=== PATIENT | female | born 1945 | race Two or more races ===

== ENCOUNTER 2021-11-15 21:07 | Inpatient (IN) | payer MEDICARE, OTHER ==
[~2021-11-15] VITALS: Ht 154.9 cm; Wt 113.4 kg
--- NOTE | 2021-11-15 21:25 | NUR ---
BASILIO Beltran FROM [facility] FOR C.O WEAKNESS X 1 DAY. PATIENT ALERT AND ORIENTED X3. BED RIDDEN IN BED 02 ON MONITOR AND POX. PT AWAITING MD CASTREJON.
--- NOTE | 2021-11-15 22:41 | NUR ---
COVID ANTIGEN SWAB DONE AND SENT TO LAB
--- NOTE | 2021-11-15 22:41 | NUR ---
BLOOD COLLECTED AND SENT TO LAB
--- NOTE | 2021-11-15 22:42 | NUR ---
BS 244 NOTIFIED
--- NOTE | 2021-11-15 22:50 | NUR ---
INFLUENZA SWAB AND URINE COLLECTED AND SENT TO LAB
[2021-11-15 23:02] LABS: BASOPHILS # (AUTO) 0.1 K/uL (0.0-0.2); BASOPHILS % (AUTO) 0.4 % (0.0-2.0); EOSINOPHILS % (AUTO) 0.3 % (0.0-6.0); HEMATOCRIT 37 % (33-45); HEMOGLOBIN 11.7 g/dL (11.5-14.8); LYMPHOCYTES # (AUTO) 1.8 K/uL (0.8-4.8); LYMPHOCYTES % (AUTO) 10.8 % (20.0-44.0); MEAN CORPUSCULAR HGB CONC 31 g/dl (31.0-36.0); MEAN CORPUSCULAR VOLUME 95 fL (82-100); MONOCYTES # (AUTO) 1.4 K/uL (0.1-1.30); MONOCYTES % (AUTO) 8.7 % (2.0-12.0); NEUTROPHILS # (AUTO) 13.2 K/uL (1.8-8.9); NEUTROPHILS % (AUTO) 79.8 % (43.0-81.0); PLATELET COUNT (AUTO) 183 K/uL (150-450); RED BLOOD CELL COUNT(AUTO) 3.92 MIL/uL (4.0-5.2); WHITE BLOOD COUNT (AUTO) 16.5 K/uL (4.3-11.0)
[2021-11-16 00:11] LABS: CALCIUM, SERUM 7.8 mg/dL (8.5-10.1); CARBON DIOXIDE 32 mmol/L (21-32); CHLORIDE 105 mmol/L (98-107); GLUCOSE 286 mg/dL (74-106); POTASSIUM 4.9 mmol/L (3.5-5.1); SODIUM SERUM 138 mmol/L (136-145); UREA NITROGEN, BLOOD 22 mg/dL (7-18)
[2021-11-16 00:15] LABS: BILIRUBIN,URINE NEGATIVE (NEGATIVE); COLOR,URINE YELLOW (YELLOW); LEUKOCYTE ESTERASE ,URINE LARGE (NEGATIVE); NITRITE, URINE NEGATIVE (NEGATIVE); PROTEIN,URINE NEGATIVE (NEGATIVE); UGLUCOSE 250 MG/DL mg/dL (NEGATIVE); UROBILINOGEN,URINE 0.2 EU/dL (0.2)
--- NOTE | 2021-11-16 00:16 | NUR ---
REGISTERED VASCULAR TECHNOLOGIST (RVT) AT PT'S BEDSIDE
[2021-11-16 00:25] LABS: ALANINE AMINOTRANSFERASE 55 U/L (12-78); ALBUMIN 2.5 g/dL (3.4-5.0); ALKALINE PHOSPHATASE 79 U/L (46-116); ASPARTATE AMINOTRANSFERASE 30 U/L (15-37); BILIRUBIN,DIRECT 0.1 mg/dL (0.0-0.2); BILIRUBIN,TOTAL 0.3 mg/dL (0.2-1.0); TOTAL PROTEIN, SERUM 5.1 g/dL (6.4-8.2)
[2021-11-16 00:32] LABS: BACTERIA,URINE Many /HPF (None Seen); RBC,URINE 0-2 /HPF (0-2); WBC,URINE TOO NUMEROUS TO COUN /HPF (0-3)
[2021-11-16 00:41] LABS: SQUAMOUS EPITHELIAL CELL,UR 0-2 /HPF (None Seen)
[2021-11-16] MEDS ORDERED: CEFTRIAXONE 1 G in IV D5W 50 ML IV ONE (02:00)
[2021-11-16] MEDS ORDERED: CEFTRIAXONE 1GM BAG (ER ONLY) 50 ML IV ONE (02:03)
--- NOTE | 2021-11-16 02:28 | NUR ---
SPOKE TO THE PT'S DAUGHTER, JULIA, AND INFORMED HER ABOUT PATIENT GETTING ADMITTED
[2021-11-16] MEDS ORDERED: ONDANSETRON HCL/PF 4 MG/2 ML VIAL IVP PRN (02:30)
[2021-11-16] MEDS ORDERED: Z GUARD REMEDY 4 OZ OINT TP PRN (02:30)
[2021-11-16] MEDS ORDERED: hydrALAZINE HCL IV 20 MG VIAL IV PRN (02:30)
[2021-11-16] MEDS ORDERED: ACETAMINOPHEN 325 MG TABLET PO PRN (02:30)
[2021-11-16] MEDS ORDERED: DEXTROSE 50%-WATER 50 ML DISP.SYRIN IV PRN (02:30)
[2021-11-16] MEDS ORDERED: MAG HYDROX/AL HYDROX/SIMETH 30 ML UDC PO PRN (02:30)
[2021-11-16] MEDS ORDERED: MORPHINE SULFATE INJ 2 MG/ML DISP.SYRIN IV PRN (02:30)
[2021-11-16] MEDS ORDERED: MAGNESIUM HYDROXIDE 30 ML UDC PO PRN (02:30)
[2021-11-16] MEDS ORDERED: ATOR40TA PO (02:46)
[2021-11-16] MEDS ORDERED: GABA-532 PO (02:46)
[2021-11-16] MEDS ORDERED: MULT-447 PO (02:46)
[2021-11-16] MEDS ORDERED: PRED5TAB48 PO (02:46)
[2021-11-16] MEDS ORDERED: LOSA50TA39 PO (02:46)
[2021-11-16] MEDS ORDERED: FOLI0.4T6 PO (02:46)
[2021-11-16] MEDS ORDERED: HYDR-4077 PO (02:46)
[2021-11-16] MEDS ORDERED: CHOL400C8 PO (02:46)
[2021-11-16] MEDS ORDERED: ZINC220T4 PO (02:46)
[2021-11-16] MEDS ORDERED: INSU100I26 SQ (02:46)
[2021-11-16] MEDS ORDERED: ASCO500W7 PO (02:46)
[2021-11-16] MEDS ORDERED: CRAN500T3 PO (02:46)
[2021-11-16] MEDS ORDERED: MAGN400T8 PO (02:46)
--- NOTE | 2021-11-16 04:45 | NUR ---
TRANSFERRED TO 311 IN STABLE CONDITION
[2021-11-16] MEDS: IV NS 0.9% 1,000 ML IV SCH (05:12)
[2021-11-16] MEDS: BLOOD SUGAR DIAGNOSTIC 1 EACH STRIP VI SCH ×5 (05:14→21:37)
[2021-11-16] MEDS: ENOXAPARIN SODIUM 40 MG/0.4 ML DISP.SYRIN SQ SCH ×2 (05:14→21:17)
--- NOTE | 2021-11-16 05:30 | NUR ---
MS ADMISSION NOTE PATIENT ARRIVED ON UNIT, ALERT/ORIENTED X 4, PT ABLE TO MAKE NEEDS KNOWN. PT DENIES PAIN AT THIS TIME. PT STABLE ON 2 LPM OF OXYGEN VIA NASAL CANNULA, NO S/S OF DISTRESS OR SOB NOTED, BREATHING EVEN AND UNLABORED. IV ACCESS ON LEFT HAND #20G INTACT AND FLUSHING WELL. PATIENT STATES SHE HAS HAD 3 COVID VACCINES BUT UNSURE OF THE TYPE AND DATES, STATES SHE'S FULLY VACCINATED FOR FLU AND PNEUMONIA. WOUND PHOTOS TAKEN, PATIENT BELONGINGS DOCUMENTED AND BELONGINGS LIST PLACED IN CHART. PATIENT HAS UPPER AND LOWER DENTURES. PATIENT IS INCONTINENT AND UNABLE TO WALK DUE TO WEAKNESS. ORIENTED PATIENT TO UNIT AND HOW TO USE CALL LIGHT AND REMOTE. SAFETY MEASURES IN PLACE: CALL LIGHT WITHIN REACH, SIDE RAILS UP X 2, BED LOCKED IN LOW POSITION, BED ALARM ON. WILL CONTINUE TO MONITOR PATIENT
[2021-11-16] MEDS: INSULIN REGULAR, HUMAN 100 UNIT/ML 3 ML VIAL SQ PRN (07:28)
--- NOTE | 2021-11-16 07:30 | NUR ---
MS RN NOTES PATIENT AWAKE IN BED.ALERT/ORIENTED X 4.PT ABLE TO MAKE NEEDS KNOWN. PT DENIES PAIN AT THIS TIME. PT STABLE ON 2 LPM OF OXYGEN VIA NASAL CANNULA, NO S/S OF DISTRESS OR SOB NOTED, BREATHING EVEN AND UNLABORED. IV ACCESS ON LEFT HAND #20G INTACT AND FLUSHING WELL. ON IV NS @75 ML/HR. BED IN THE LOWEST POSITION AND LOCKED. SIDE RAILS UP TIMES 2. CALL LIGHT AND TABLE IN REACH. WILL CONTINUE TO MONITOR.
--- NOTE | 2021-11-16 07:52 | NUR ---
MS RN CLOSING NOTE PATIENT AWAKE IN BED, ALERT/ORIENTED X 4, PT ABLE TO MAKE NEEDS KNOWN. PT STABLE ON 2 LPM OF OXYGEN VIA NASAL CANNULA, NO S/S OF DISTRESS OR SOB NOTED, BREATHING EVEN AND UNLABORED. NO SIGNIFICANT CHANGES THROUGHOUT SHIFT. MEDICATIONS GIVEN ORDERED, PT NEEDS MET THROUGHOUT SHIFT. LEFT HAND IV ACCESS INFUSING NS @ 75 ML/HR. SAFETY MEASURES IN PLACE: CALL LIGHT WITHIN REACH, SIDE RAILS UP X 2, BED LOCKED IN LOW POSITION, HOB ELEVATED, BED ALARM ON. ENDORSED TO DAY SHIFT NURSE FOR CONTINUITY OF CARE
[2021-11-16] MEDS ORDERED: ACET-2605 PO (08:13)
[2021-11-16] MEDS ORDERED: DIPH25CA51 PO (08:13)
[2021-11-16] MEDS ORDERED: PHEN-894 PO (08:13)
[2021-11-16] MEDS ORDERED: INSU100I34 SQ (08:13)
[2021-11-16] MEDS ORDERED: PRED10TA PO (08:13)
[2021-11-16] MEDS ORDERED: CHOL100043 PO (08:13)
[2021-11-16] MEDS ORDERED: ASCO-352 PO (08:13)
[2021-11-16] MEDS ORDERED: TRAM50TA2 PO (08:13)
[2021-11-16] MEDS ORDERED: ZINC220C6 PO (08:13)
--- NOTE | 2021-11-16 08:39 | NUR ---
WOUND CARE CONSULT: PT PRESENTS WITH DISCOLORATION TO FEET AND ANKLES WITH CALLUS, SCARRING TO SACRAL/BUTTOCKS AREAS AND SKIN CONDITION WITH WHITE LESIONS TO BILATERAL ARMS, PRESENT ON ADMISSION. PT IS INCONTINENT. RECOMMENDATIONS MADE FOR SKIN PROTECTION. DISCUSSED WITH NURSING STAFF. IN AGREEMENT WITH PLAN OF CARE. Addendum: 11/16/21 at 0841 by VLADISLAV DHILLONU Amended: Links added. Addendum: 11/16/21 at 0841 by VLADISLAV DHILLONU GROIN FOLD AND PERINEAL REDNESS/RASH ALSO NOTED. DISCUSSED SKIN CARE AND PROTECTION WITH NURSING STAFF.
[2021-11-16] MEDS: CLOTRIMAZOLE 1% 15 GM TUBE TP SCH ×2 (10:03→16:42)
[2021-11-16] MEDS ORDERED: diphenhydrAMINE HCL 25 MG CAPSULE PO PRN (13:00)
[2021-11-16] MEDS ORDERED: TRAMADOL HCL 50 MG TABLET PO PRN (13:00)
[2021-11-16] MEDS: *INSULIN REGULAR(HUMULIN R)HUM 100 UNIT/ML VIAL SQ PRN ×2 (13:10→17:38)
[2021-11-16] MEDS: GABAPENTIN 300 MG CAPSULE PO SCH (16:42)
--- NOTE | 2021-11-16 18:40 | NUR ---
MS RN CLOSING NOTES PATIENT AWAKE IN BED.ALERT/ORIENTED X 4.PT ABLE TO MAKE NEEDS KNOWN. PT DENIES PAIN AT THIS TIME. PT STABLE ON 2 LPM OF OXYGEN VIA NASAL CANNULA, NO S/S OF DISTRESS OR SOB NOTED, BREATHING EVEN AND UNLABORED. NO IV ACCESS. LEFT AC SITE INFILTRATION. NO IV INSERTION SUCCESS. CHARGE NURSE ORDERED FOR MID LINE INSERTION. ALL DUE MEDS GIVEN ORDERED. BED IN THE LOWEST POSITION AND LOCKED. SIDE RAILS UP TIMES 2. CALL LIGHT AND TABLE IN REACH. DAUGHTER JULIA CALLED FOR UPDATES. WILL ENDORSE FOR RICK TO INCOMING SHIFT.
--- NOTE | 2021-11-16 19:48 | NUR ---
MS RN OPENING NOTES RECEIVED PATIENT AWAKE IN BED. A/O X 4. ABLE TO MAKE NEEDS KNOWN. PT STABLE ON 2 LPM OF OXYGEN VIA NASAL CANNULA, NO AOB OR S/S OF RESPIRATORY DISTRESS NOTED. NO IV ACCESS. AWAITING MIDLINE INSERTION. SAFETY PRECAUTIONS IN PLACE. BED IN LOWEST LOCKED POSITION, HOB ELEVATED, SIDE RAILS UP X2, AND CALL LIGHT AND TABLE WITHIN REACH. WILL CONTINUE WITH PLAN OF CARE.
[2021-11-16 20:00] VITALS: BP 106/46
--- NOTE | 2021-11-16 21:14 | NUR ---
RN NOTE STILL WAITING FOR MIDLINE INSERTION NURSE. UNABLE TO GIVE IV CEFTRIAXONE AT THIS TIME. WILL ADMINISTER ONCE MIDLINE INSERTED.
[2021-11-16] MEDS: ATORVASTATIN 40 MG TABLET PO SCH (21:30)
[2021-11-17] MEDS: CEFTRIAXONE 1 G in IV D5W 50 ML IV SCH ×2 (00:44→21:16)
--- NOTE | 2021-11-17 00:45 | NUR ---
RN NOTE MIDLINE SUCCESSFULLY INSERTED. WILL ADMINISTER ROCEPHIN ORDERED. WILL CONTINUE WITH PLAN OF CARE.
[2021-11-17] MEDS: IV NS 0.9% 1,000 ML IV SCH (05:11)
[2021-11-17 06:41] LABS: BASOPHILS % (AUTO) 0.3 % (0.0-2.0); EOSINOPHILS % (AUTO) 1.9 % (0.0-6.0); HEMATOCRIT 41 % (33-45); HEMOGLOBIN 12.9 g/dL (11.5-14.8); LYMPHOCYTES # (AUTO) 3.4 K/uL (0.8-4.8); LYMPHOCYTES % (AUTO) 24.4 % (20.0-44.0); MEAN CORPUSCULAR HGB CONC 32 g/dl (31.0-36.0); MEAN CORPUSCULAR VOLUME 95 fL (82-100); MONOCYTES # (AUTO) 1.4 K/uL (0.1-1.30); MONOCYTES % (AUTO) 9.7 % (2.0-12.0); NEUTROPHILS % (AUTO) 63.7 % (43.0-81.0); PLATELET COUNT (AUTO) 203 K/uL (150-450); WHITE BLOOD COUNT (AUTO) 14.2 K/uL (4.3-11.0)
[2021-11-17] MEDS: BLOOD SUGAR DIAGNOSTIC 1 EACH STRIP VI SCH ×4 (07:02→21:54)
--- NOTE | 2021-11-17 07:21 | NUR ---
MS RN CLOSING NOTES PATIENT AWAKE IN BED. A/O X 4. ABLE TO MAKE NEEDS KNOWN. PT STABLE ON 2 LPM OF OXYGEN VIA NASAL CANNULA, NO AOB OR S/S OF RESPIRATORY DISTRESS NOTED. IV ACCESS R UPPER ARM MIDLINE, INTACT AND PATENT, RUNNING NS @ 75 ML/HR. ALL NEEDS MET AT THIS TIME. SAFETY PRECAUTIONS IN PLACE AT ALL TIMES. BED IN LOWEST LOCKED POSITION, HOB ELEVATED, SIDE RAILS UP X2, AND CALL LIGHT AND TABLE WITHIN REACH. WILL ENDORSE TO ONCOMING SHIFT FOR RICK.
--- NOTE | 2021-11-17 07:30 | NUR ---
RN OPENING NOTES Patient seen comfortably lying in bed, no SOB, no apparent distress noted, breathing even and unlabored, denies any pain or discomfort at this time, no grimacing. Call light left within reach, safety precautions in place, brakes locked, side rails up X 2, will monitor closely for any changes.
[2021-11-17 07:40] LABS: ALBUMIN 2.6 g/dL (3.4-5.0); BILIRUBIN,TOTAL 0.3 mg/dL (0.2-1.0); CALCIUM, SERUM 7.8 mg/dL (8.5-10.1); CREATININE 0.8 mg/dL (0.6-1.3); MAGNESIUM 1.8 mg/dL (1.8-2.4); POTASSIUM 4.3 mmol/L (3.5-5.1); TOTAL PROTEIN, SERUM 5.5 g/dL (6.4-8.2)
[2021-11-17 08:00] VITALS: BP 128/53
[2021-11-17] MEDS: MAGNESIUM OXIDE 400 MG TABLET PO SCH (08:50)
[2021-11-17] MEDS: GABAPENTIN 300 MG CAPSULE PO SCH ×2 (08:50→16:57)
[2021-11-17] MEDS: CHOLECALCIFEROL 1,000 UNIT TABLET (VIT D3) PO SCH (08:50)
[2021-11-17] MEDS: MULTIVIT W/MINERALS 1 TAB TABLET PO SCH (08:51)
[2021-11-17] MEDS: LOSARTAN POTASSIUM 50 MG TABLET PO SCH (08:51)
[2021-11-17] MEDS: ASCORBIC ACID 500 MG TABLET PO SCH (08:51)
[2021-11-17] MEDS: ZINC SULFATE 220 MG CAPSULE PO SCH (08:51)
[2021-11-17] MEDS: FOLIC ACID 1 MG TABLET PO SCH (08:51)
[2021-11-17] MEDS: predniSONE 5 MG TABLET PO SCH (08:51)
[2021-11-17] MEDS: CLOTRIMAZOLE 1% 15 GM TUBE TP SCH ×2 (09:07→16:57)
[2021-11-17] MEDS: INSULIN GLARGINE, 100 UNIT/ML CARTRIDGE SQ SCH (09:11)
--- NOTE | 2021-11-17 11:10 | NUR ---
Patient preferred not to take his medications today, health teaching provided, explained risks and benefits thrice, still strongly refused, no apparent distress noted, hospitalist made aware of the situation and acknowledged. Will continue to monitor for any changes. Addendum: 11/17/21 at 1112 by KIM DWYER RN WRONG DOCUMENTATION
[2021-11-17 16:00] VITALS: BP 134/55
--- NOTE | 2021-11-17 18:34 | NUR ---
RN CLOSING NOTES Patient lying in bed, no apparent distress noted, no shortness of breath, breathing even and unlabored, no grimacing, denies any pain or discomfort at this time, remained afebrile, no dizziness, no palpitations, no chest pain. Due medications given per MD order, tolerating well. No s/s of hypo or hyperglycemia, no tremors, no change in level of consciousness. Patient has a midline on her right upper arm, patent and intact, no swelling, no redness, no c/o pain or discomfort at site. Aspiration precautions observed at all times, kept head of bed elevated, all needs anticipated, kept clean and dry, safety precautions in place, frequent visual checks rendered, frequent turning and repositioning done, side rails up X 2, brakes locked, call light left within reach, will endorse to next shift for continuity of care.
--- NOTE | 2021-11-17 19:33 | NUR ---
MS RN OPENING NOTES RECEIVED PATIENT AWAKE IN BED. A/O X 4. ABLE TO MAKE NEEDS KNOWN. PT STABLE ON 2 LPM OF OXYGEN VIA NASAL CANNULA, NO SOB OR S/S OF RESPIRATORY DISTRESS NOTED. IV ACCESS R UPPER ARM MIDLINE, INTACT AND PATENT. SAFETY PRECAUTIONS IN PLACE. BED IN LOWEST LOCKED POSITION, HOB ELEVATED, SIDE RAILS UP X2, AND CALL LIGHT AND TABLE WITHIN REACH. WILL CONTINUE WITH PLAN OF CARE.
[2021-11-17 20:00] VITALS: BP 99/43
[2021-11-17] MEDS: ATORVASTATIN 40 MG TABLET PO SCH (21:16)
[2021-11-17] MEDS: ENOXAPARIN SODIUM 40 MG/0.4 ML DISP.SYRIN SQ SCH (21:17)
[2021-11-17] MEDS: *INSULIN REGULAR(HUMULIN R)HUM 100 UNIT/ML VIAL SQ PRN (21:55)
[2021-11-18] MEDS: BLOOD SUGAR DIAGNOSTIC 1 EACH STRIP VI SCH ×4 (06:32→22:08)
[2021-11-18] MEDS: INSULIN REGULAR, HUMAN 100 UNIT/ML 3 ML VIAL SQ PRN ×3 (06:33→16:54)
--- NOTE | 2021-11-18 06:39 | NUR ---
MS RN CLOSING NOTES PATIENT AWAKE IN BED. A/O X 4. ABLE TO MAKE NEEDS KNOWN. PT STABLE ON 2 LPM OF OXYGEN VIA NASAL CANNULA, NO SOB OR S/S OF RESPIRATORY DISTRESS NOTED. IV ACCESS R UPPER ARM MIDLINE, INTACT AND PATENT. PURWICK CATHETER REPLACED, DRAINING CLEAR YELLOW URINE. ALL NEEDS MET AT THIS TIME. SAFETY PRECAUTIONS IN PLACE AT ALL TIMES. BED IN LOWEST LOCKED POSITION, HOB ELEVATED, SIDE RAILS UP X2, AND CALL LIGHT AND TABLE WITHIN REACH. WILL ENDORSE TO ONCOMING SHIFT FOR RICK.
--- NOTE | 2021-11-18 07:45 | NUR ---
RN OPENING NOTES Patient seen comfortably lying in bed, no apparent distress noted, respirations even and unlabored, no SOB, denies any pain or discomfort at this time, no grimacing. Call light left within reach, safety precautions in place, brakes locked, side rails up X 2, will monitor closely for any changes.
[2021-11-18 08:00] VITALS: BP 115/52
[2021-11-18] MEDS: CHOLECALCIFEROL 1,000 UNIT TABLET (VIT D3) PO SCH (08:47)
[2021-11-18] MEDS: predniSONE 5 MG TABLET PO SCH (08:47)
[2021-11-18] MEDS: MAGNESIUM OXIDE 400 MG TABLET PO SCH (08:47)
[2021-11-18] MEDS: ZINC SULFATE 220 MG CAPSULE PO SCH (08:47)
[2021-11-18] MEDS: ASCORBIC ACID 500 MG TABLET PO SCH (08:47)
[2021-11-18] MEDS: MULTIVIT W/MINERALS 1 TAB TABLET PO SCH (08:47)
[2021-11-18] MEDS: GABAPENTIN 300 MG CAPSULE PO SCH ×2 (08:47→16:20)
[2021-11-18] MEDS: FOLIC ACID 1 MG TABLET PO SCH (08:47)
[2021-11-18] MEDS: LOSARTAN POTASSIUM 50 MG TABLET PO SCH (08:48)
[2021-11-18] MEDS: INSULIN GLARGINE, 100 UNIT/ML CARTRIDGE SQ SCH (08:57)
[2021-11-18] MEDS: CLOTRIMAZOLE 1% 15 GM TUBE TP SCH ×2 (09:06→16:24)
[2021-11-18 16:00] VITALS: BP 149/75
--- NOTE | 2021-11-18 18:38 | NUR ---
RN CLOSING NOTES Patient lying in bed, respirations even and unlabored, no shortness of breath, no grimacing, no apparent distress noted, denies any pain or discomfort at this time, remained afebrile, no dizziness, no palpitations, no chest pain. Due medications given per MD order, tolerating well. Insulin given per sliding scale per MD order, tolerated well. No s/s of hypo or hyperglycemia, no tremors, no change in level of consciousness. Patient is using a purewick, draining clear yellowish urine free from any sediments, no hematuria, and no unusual odor noted in urine, denies any bladder pain or discomfort, bladder non distended during shift. Patient has a midline on her right upper arm, patent and intact, no c/o pain or discomfort at site, no redness, no swelling. All needs attended, kept clean and dry, aspiration precautions observed at all times, kept head of bed elevated, safety precautions in place, frequent visual checks rendered, frequent turning and repositioning done, side rails up X 2, brakes locked, call light left within reach, will endorse to next shift for continuity of care.
[2021-11-18 20:00] VITALS: BP 130/49
--- NOTE | 2021-11-18 20:04 | NUR ---
MS RN OPENING NOTES: RECEIVED PATIENT AWAKE IN BED, BED IN LOW POSITION CALL LIGHTS WITHIN REACH, NO COMPLAIN OF PAIN AND DISCOMFORT AT THIS TIME, PATIENT IS A/OX4 ABLE TO MAKE NEEDS KNOWN, WITH MARIA E MIDLINE SL, ON BED REST, ON O2 INHALATION AT 2LPM SATURATING WELL, PATIENT KEPT CLEAN AND DRY ALL NEEDS MET WILL CONTINUE TO MONITOR.
[2021-11-18] MEDS: CEFTRIAXONE 1 G in IV D5W 50 ML IV SCH (21:28)
[2021-11-18] MEDS: ATORVASTATIN 40 MG TABLET PO SCH (21:28)
[2021-11-18] MEDS: ENOXAPARIN SODIUM 40 MG/0.4 ML DISP.SYRIN SQ SCH (21:29)
[2021-11-18] MEDS: *INSULIN REGULAR(HUMULIN R)HUM 100 UNIT/ML VIAL SQ PRN (21:56)
[2021-11-19] MEDS: BLOOD SUGAR DIAGNOSTIC 1 EACH STRIP VI SCH (06:44)
--- NOTE | 2021-11-19 06:44 | NUR ---
RN NOTES: BS-101 NO INSULIN GIVEN PER SLIDING SCALE
--- NOTE | 2021-11-19 06:55 | NUR ---
RN CLOSING NOTES: RECEIVED PATIENT SLEEP IN BED COMFORTABLY, BED IN LOW POSITION, CALL LIGHTS WITHN REACH, NO COMPLAIN OF PAIN AND DISCOMFORT AT THIS TIME, ON O2 INHALATION AT 3LPM SATURATING WELL, WITH MARIA E ML SALINE LOCK PATIENT IS A/OX4 ABLE TO MAKE NEEDS KNWN, PATIENT KEPT CLEAN AND DRY ALL NEEDS MET ENDORSE TO INCOMING SHIFT.
--- NOTE | 2021-11-19 07:20 | NUR ---
MS RN OPENING NOTES RECEIVED PATIENT AWAKE IN BED, PATIENT IS ALERT AND ORIENTED X 4 WITH NO SIGNS OF RESPIRATORY DISTRESS. PATIENT WITH MARIA E MIDLINE ON SALINE LOCK, PATENT AND INTACT. ON PUREWICK HOKKED TO SUCTION MACHINE, WITH LIGTH YELLOW URINE NOTED. MAINTAINED ON NORMAL BODY ALIGNMENT. SAFETY MEASURES ENSURED WITH BED ON LOWEST LOCKED POSITION, SIDERAILS RAISED. CALL LIGHT WITHIN REACH AT ALL TIMES. WILL CONTINUE TO MONITOR PATIENT.
[2021-11-19 07:25] LABS: BASOPHILS # (AUTO) 0.1 K/uL (0.0-0.2); BASOPHILS % (AUTO) 1.1 % (0.0-2.0); EOSINOPHILS % (AUTO) 2.1 % (0.0-6.0); HEMATOCRIT 34 % (33-45); LYMPHOCYTES % (AUTO) 27.4 % (20.0-44.0); MEAN CORPUSCULAR HGB CONC 32 g/dl (31.0-36.0); MEAN CORPUSCULAR VOLUME 94 fL (82-100); MONOCYTES # (AUTO) 0.8 K/uL (0.1-1.30); NEUTROPHILS # (AUTO) 4.2 K/uL (1.8-8.9); NEUTROPHILS % (AUTO) 58.4 % (43.0-81.0); PLATELET COUNT (AUTO) 225 K/uL (150-450); RED BLOOD CELL COUNT(AUTO) 3.64 MIL/uL (4.0-5.2); WHITE BLOOD COUNT (AUTO) 7.2 K/uL (4.3-11.0)
--- NOTE | 2021-11-19 08:05 | NUR ---
MS RN NOTE PATIENT SEEN BY DR. REYES. WILL CONTINUE TO MONITOR PATIENT.
[2021-11-19 08:11] VITALS: BP 133/57
[2021-11-19] MEDS ORDERED: MEROPENEM 500 MG in IV NS 0.9% 50 ML IV SCH (08:30)
[2021-11-19 08:56] VITALS: BP 133/57
[2021-11-19] MEDS: MAGNESIUM OXIDE 400 MG TABLET PO SCH (08:56)
[2021-11-19] MEDS: LOSARTAN POTASSIUM 50 MG TABLET PO SCH (08:56)
[2021-11-19] MEDS: FOLIC ACID 1 MG TABLET PO SCH (08:56)
[2021-11-19] MEDS: predniSONE 5 MG TABLET PO SCH (08:57)
[2021-11-19] MEDS: GABAPENTIN 300 MG CAPSULE PO SCH (08:57)
[2021-11-19] MEDS: MULTIVIT W/MINERALS 1 TAB TABLET PO SCH (08:57)
[2021-11-19] MEDS: ZINC SULFATE 220 MG CAPSULE PO SCH (08:58)
[2021-11-19] MEDS: CHOLECALCIFEROL 1,000 UNIT TABLET (VIT D3) PO SCH (08:58)
[2021-11-19] MEDS: ASCORBIC ACID 500 MG TABLET PO SCH (08:58)
[2021-11-19] MEDS ORDERED: MEROPENEM 1 G in IV NS 0.9% 100 ML IV SCH (09:00)
[2021-11-19] MEDS: INSULIN GLARGINE, 100 UNIT/ML CARTRIDGE SQ SCH (09:13)
[2021-11-19] MEDS: CLOTRIMAZOLE 1% 15 GM TUBE TP SCH (10:46)
[2021-11-19 10:49] LABS: CALCIUM, SERUM 8.5 mg/dL (8.5-10.1); CREATININE 0.7 mg/dL (0.6-1.3); POTASSIUM 5.5 mmol/L (3.5-5.1)
--- NOTE | 2021-11-19 11:02 | NUR ---
MS RN NOTE PATIETN WITH ORDER FOR DISCHARGE. HEALTH TEACHING DONE REGARDING DISCHARGE AND DISCHARGE INSTRUCTIONS. VERBALIZED UNDERSTANDING AND APPRECIATION. WILL CONTINUE TO MONITOR PATIENT.
--- NOTE | 2021-11-19 13:10 | NUR ---
MS RN NOTE PATIENT DISCHARGED ORDER. PATIENT ENDORSED TO [facility] OF [facility]. PATIENT IN STABLE CONDITION. PICKED UP BY AMBULANCE, TRANSPORTED ON A GURNEY TO LOBBY. WILL ENDORSE ACCORDINGLY.
== END 2021-11-19 13:00 | DRG 871 ==
LOC: ER 21:10 → MED 11-16 03:13
PROVIDERS: ADMIT Nurse Practitioner Acute Care; ATTEND Nurse Practitioner Acute Care
PROC: 05H533Z Insertion of Infusion Device into Right Subclavian Vein, Percutaneous Approach (ICD-10-PCS; principal; 2021-11-17)
PROC: B546ZZA Ultrasonography of Right Subclavian Vein, Guidance (ICD-10-PCS; 2021-11-17)
DX: A41.9 Sepsis, unspecified organism (principal); N17.0 Acute kidney failure with tubular necrosis; N39.0 Urinary tract infection, site not specified; Z68.42 Body mass index [BMI] 45.0-49.9, adult; D68.69 Other thrombophilia; Z16.12 Extended spectrum beta lactamase (ESBL) resistance; I10 Essential (primary) hypertension; J44.9 Chronic obstructive pulmonary disease, unspecified; E11.9 Type 2 diabetes mellitus without complications; B96.20 Unspecified Escherichia coli [E. coli] as the cause of diseases classified elsewhere; E66.01 Morbid (severe) obesity due to excess calories; E78.5 Hyperlipidemia, unspecified; Z20.822 Contact with and (suspected) exposure to COVID-19; Z74.09 Other reduced mobility; E11.65 Type 2 diabetes mellitus with hyperglycemia; Z79.4 Long term (current) use of insulin
CPT/HCPCS: 36415; 71045-TC; 80048-TC; 80053-TC; 80076-TC; 81001; 82962-TC; 83605-TC; 83735-TC; 83880; 84100-TC; 84484-TC; 85025-TC; 85730-TC; 87040-TC; 87081-TC; 87086-TC; 87186-TC; 97116-TC; 97530-TC; C9803; G0378; J0696; J1650; J1815; J2185; J2405; J7030; J7060; J7512